=== PATIENT | female | born 1965 | race American Indian/Alaskan Native ===

== ENCOUNTER 2018-06-02 11:45 | Emergency (ER) | payer MEDICAID, MEDICARE ==
[2018-06-02 11:46] VITALS: BMI 46.7
[2018-06-02 12:17] VITALS: RESP 18
--- NOTE | 2018-06-02 14:31 | ED PDOC ---
Arrival/HPI - General Chief Complaint: Lower Extremity Problem/Injury Time Seen by Provider: 06/02/18 12:18 Historian: Patient - History of Present Illness Narrative History of Present Illness (Text): 06/02/18 14:23 53yo female with pmhx of Lupus, b/l knee OA, hypertension, gout, DVT, Neuropathy, who present with complaint of right lower leg pain. States pain starts from her right knee to her mid lower leg laterally. States pain became worse 4days ago and she usually gets palpitation with the pain. States she did not take her pain medication today. She denies chest pain, SOB, diaphoresis, calf pain, nausea, vomiting, abdominal pain, dizziness, any other complaint. Past Medical History - Provider Review Nursing Documentation Reviewed: Yes - Infectious Disease Hx of Infectious Diseases: None - Tetanus Immunization Tetanus Immunization: Up to Date - Reproductive Menopause: Yes Currently : No - Cardiac Hx Hypertension: Yes - Pulmonary Hx Bronchitis: Yes Hx Sleep Apnea: Yes (GABRIELA) - Neurological HX Cerebrovascular Accident: No - HEENT Hx HEENT Disorder: Yes (dry eye) - Renal Hx Renal Disorder: No - Endocrine/Metabolic Hx Systemic Lupus Erythematosus: Yes - Hematological/Oncological Hx Blood Disorders: Yes Hx Blood Transfusions: No Hx Bruising: Yes Hx Cancer: Yes (BONE CHONDROSARCOMA) Hx Chemotherapy: No Other/Comment: s/p stem cell transplant 2005 - Integumentary Hx Dermatological Disorder: Yes (SLE) Other/Comment: LUPUS FACIAL RASH - Musculoskeletal/Rheumatological Hx Arthritis: Yes (KNEES) - Gastrointestinal Hx Gastrointestinal Disorders: No - Genitourinary/Gynecological Hx Genitourinary Disorders: No - Psychiatric Hx Depression: No Hx Substance Use: No - Past Surgical History Past Surgical History: No Previous - Surgical History Hx Tonsillectomy: Yes Other/Comment: R breast cyst removal. Cancer R leg - Anesthesia Hx Anesthesia: Yes Hx Anesthesia Reactions: No Hx Malignant Hyperthermia: No - Suicidal Assessment Feels Threatened In Home Enviroment: No Family/Social History - Physician Review Nursing Documentation Reviewed: Yes Family/Social History: Unknown Family HX Smoking Status: Never Smoked Hx Alcohol Use: Yes Frequency of alcohol use: Socially Hx Substance Use: No Hx Substance Use Treatment: No Allergies/Home Meds Allergies/Adverse Reactions: Allergies warfarin Allergy (Intermediate, Verified 06/02/18 12:17) URTICARIA tape Allergy (Mild, Uncoded 05/05/17 10:46) RASH ultrasound gel Allergy (Mild, Uncoded 05/05/17 10:46) RASH Home Medications: Home Meds Medication Instructions Recorded Confirmed RX: Pilocarpine [Salagen Tab] 5 mg PO QID 01/04/16 11/19/16 RX: Cholecalciferol (Vitamin D3) 50,000 iu PO QWK 03/14/16 11/20/16 [Vitamin D3] RX: Febuxostat [Uloric] 80 mg PO DAILY 04/14/16 11/20/16 RX: Pantoprazole Sodium [Protonix] 40 mg PO DAILY 11/20/16 11/20/16 RX: Potassium Chloride [K-Dur 20 11/20/16 mEq ER Tab] Review of Systems - Physician Review All systems were reviewed & negative as marked: Yes - Review of Systems Constitutional: Normal Eyes: Normal ENT: Normal Respiratory: Normal Cardiovascular: Normal Gastrointestinal: Normal Genitourinary Female: Normal Musculoskeletal: Arthralgias (Right leg pain) Skin: Normal Neurological: Normal Endocrine: Normal Hemo/Lymphatic: Normal Psychiatric: Normal Physical Exam Vital Signs Reviewed: Yes Vital Signs Temp Pulse Resp BP Pulse Ox 06/02/18 12:13 98.2 F 72 18 115/76 99 06/02/18 11:46 98.2 F 72 18 115/76 99 Temperature: Afebrile Blood Pressure: Normal Pulse: Regular Respiratory Rate: Normal Appearance: Positive for: Well-Appearing, Non-Toxic, Comfortable Pain Distress: None Mental Status: Positive for: Alert and Oriented X 3 - Systems Exam Head: Present: Atraumatic, Normocephalic Pupils: Present: PERRL Extroacular Muscles: Present: EOMI Conjunctiva: Present: Normal Mouth: Present: Moist Mucous Membranes Neck: Present: Normal Range of Motion Respiratory/Chest: Present: Clear to Auscultation, Good Air Exchange. No: Respiratory Distress, Accessory Muscle Use Cardiovascular: Present: Regular Rate and Rhythm, Normal S1, S2. No: Murmurs Abdomen: No: Tenderness, Distention, Peritoneal Signs Back: Present: Normal Inspection Upper Extremity: Present: Normal Inspection. No: Cyanosis, Edema Lower Extremity: Present: Normal Inspection. No: Edema Neurological: Present: GCS=15, CN II-XII Intact, Speech Normal Skin: Present: Warm, Dry, Normal Color. No: Rashes Psychiatric: Present: Alert, Oriented x 3, Normal Insight, Normal Concentration Medical Decision Making ED Course and Treatment: 06/02/18 16:37 53yo female who present with complaint of right knee pain x days. Pt was ambulatory in ED with a cane. Doppler US IMPRESSION: No sonographic evidence for deep venous thrombosis in the visualized segments of both lower extremities. Knee xray IMPRESSION: Mild joint space narrowing in the lateral compartment. Mild degenerative changes in the patellofemoral joint. Pt pain was controlled in ED with medication. Result was DW the pt and she was referred to ortho - RAD Interpretation Radiology Orders: 06/02/18 12:54 DUPLEX LOWER EXTRM VEIN BILAT [US] Stat - Medication Orders Current Medication Orders: Discontinued Medications Tramadol HCl (Ultram) 50 mg PO STAT STA Stop: 06/02/18 12:55 Last Admin: 06/02/18 13:11 Dose: 50 mg MAR Pain Assessment Document 06/02/18 13:11 SRE (Rec: 06/02/18 13:11 SRE [id number]) Pain Reassessment Is this a pain reassessment? Yes Sleep Is patient sleeping during reassessment? No Presence of Pain Presence of Pain Yes Pain Scale Used Protocol: PSCALES Pain Scale Used Numeric Location Left, Right or Bilateral Bilateral Disposition/Present on Arrival - Present on Arrival Any Indicators Present on Arrival: No History of DVT/PE: No History of Uncontrolled Diabetes: No Urinary Catheter: No History of Decub. Ulcer: No History Surgical Site Infection Following: None - Disposition Have Diagnosis and Disposition been Completed?: Yes Diagnosis: Knee pain Disposition: HOME/ ROUTINE Disposition Time: 14:55 Patient Plan: Discharge Condition: STABLE Discharge Instructions (ExitCare): Chronic Knee Pain (DC) Additional Instructions: Follow up with your doctor/Orthopedist Return to ED for any new symptoms Referrals: Nathaniel Mcintosh DO [Staff Provider] - Follow up with primary Forms: [employer] ([place])
--- NOTE | 2018-06-02 14:39 | CARD ---
APPROVED REPORT Date of service: 06/02/2018 EKG Measurement Heart [id number] <Conclusion> Normal sinus rhythm Normal Electrocardiogram
--- NOTE | 2018-06-02 15:07 | RAD ---
Date of service: 06/02/2018 PROCEDURE: Right Knee Radiographs. HISTORY: knee pain COMPARISON: None. FINDINGS: BONES: Normal. No fracture. JOINTS: Mild joint space narrowing in the lateral compartment. Mild degenerative changes in the patellofemoral joint. JOINT EFFUSION: None. OTHER FINDINGS: None. IMPRESSION: Mild joint space narrowing in the lateral compartment. Mild degenerative changes in the patellofemoral joint.
[2018-06-02 15:12] VITALS: BP 109/68; PULSE 76; TEMP 97.8; O2SAT 100
--- NOTE | 2018-06-02 15:17 | US ---
HISTORY: Leg pain and swelling. Evaluate for DVT PHYSICIAN(S): Ben Galloway MD. TECHNIQUE: Duplex sonography and color-flow Doppler with graded compression were used to evaluate the deep venous systems of both lower extremities. FINDINGS: The visualized deep venous systems of both lower extremities are sonographically normal and compressible. Normal wave forms and augmentation are seen. There is no sonographic evidence for deep venous thrombosis in the visualized segments of both lower extremities. IMPRESSION: No sonographic evidence for deep venous thrombosis in the visualized segments of both lower extremities.
== END 2018-06-02 15:13 | disposition home or self-care (01) ==
LOC: ED 11:45
DX: M25.561 Pain in right knee (principal); I10 Essential (primary) hypertension; M32.9 Systemic lupus erythematosus, unspecified; M17.0 Bilateral primary osteoarthritis of knee; G47.33 Obstructive sleep apnea (adult) (pediatric)

== ENCOUNTER 2018-07-25 08:26 | Outpatient (CLI) | payer MEDICARE | END 2018-07-25 08:27 | disposition home or self-care (01) | LOC: RAD 08:26 ==

== ENCOUNTER 2018-08-28 11:28 | Outpatient (CLI) | payer MEDICARE | END 2018-08-28 11:29 | disposition home or self-care (01) | LOC: RAD 11:28 ==